=== PATIENT | female | born 1965 | race Caucasian/White ===

== ENCOUNTER → 2017-06-23 | Outpatient (CLI) | payer BC, OTHER ==
[~2017-06-23] MED LIST: ACET65TA; DEPA500T2; FLUO40CA PO; KEPP500T4 PO; LORA1TAB PO; LORT5TAB PO; MAXA10TA20 PO; MOTR200T44 PO; NECON; OLAN5TAB PO; OMEP20CA3 PO; ORTH1TAB4 PO; PERCOCET PO; PROZ40CA PO; QUET1TAB9 PO; RIZA10TA4 PO; SERO200T PO; TYLE325T5 PO; ZOFR8TAB PO
== END ==
LOC: M WUC 09:45
PROVIDERS: ATTEND Nurse Practitioner Psychiatric/Mental Health
DX: F20.9 Schizophrenia, unspecified (principal); Z79.899 Other long term (current) drug therapy
CPT/HCPCS: 36415; 80061; 82465; 83036; G0480

== ENCOUNTER → 2018-07-20 | Outpatient (CLI) | payer BC, OTHER | LOC: M WHC 06:46 | DX: Z12.31 Encounter for screening mammogram for malignant neoplasm of breast (principal); Z78.0 Asymptomatic menopausal state; Z79.3 Long term (current) use of hormonal contraceptives | CPT/HCPCS: 77067 ==

== ENCOUNTER 2018-08-03 09:47 | Day surgery (SDC) | payer BC, OTHER ==
[2018-08-03] MEDS: NS 1,000 ML IV (10:55)
[2018-08-03] MEDS ORDERED: PROPOFOL 200 MG/20 ML VIAL As Ordered ×2 (11:24)
== END 2018-08-03 12:10 | disposition home or self-care (01) ==
LOC: M OPP 12:10
DX: Z12.11 Encounter for screening for malignant neoplasm of colon (principal); K21.9 Gastro-esophageal reflux disease without esophagitis; F41.9 Anxiety disorder, unspecified; G43.909 Migraine, unspecified, not intractable, without status migrainosus; Z79.899 Other long term (current) drug therapy; Z91.012 Allergy to eggs; Z91.048 Other nonmedicinal substance allergy status; Z88.5 Allergy status to narcotic agent; Z86.69 Personal history of other diseases of the nervous system and sense organs; Z90.710 Acquired absence of both cervix and uterus
CPT/HCPCS: 45378

== ENCOUNTER → 2018-10-27 | Outpatient (CLI) | payer OTHER, BC ==
[~2018-10-27] MED LIST changes: +PROP20TA72 PO; +ZIPR20CA13 PO
[2018-10-27 12:48] LABS: CHOLESTEROL RISK RATIO 5.159 (<5)
[2018-10-27 13:24] LABS: HEMOGLOBIN A1c 5.9 %
== END ==
LOC: M WUC 08:06
PROVIDERS: ATTEND Nurse Practitioner Psychiatric/Mental Health
DX: F20.9 Schizophrenia, unspecified (principal); Z51.81 Encounter for therapeutic drug level monitoring; Z79.899 Other long term (current) drug therapy

== ENCOUNTER 2019-01-12 16:39 | Emergency (ER) | payer BC, OTHER ==
[~2019-01-12] VITALS: Ht 160 cm; Wt 74.5 kg
[~2019-01-12 16:39] MED LIST changes: +ONDA-227 PO; +OXYC1TAB23 PO; -PERCOCET PO; -ZOFR8TAB PO
[2019-01-12] MEDS ORDERED: METOCLOPRAMIDE INJ 10MG/2ML VIAL (J2765) IV ONE (17:00)
[2019-01-12] MEDS ORDERED: KETOROLAC 30 MG/ML VIAL (J1885) IV ONE (17:00)
[2019-01-12] MEDS ORDERED: ZIPR40CA11 PO (17:03)
--- NOTE | 2019-01-12 18:53 | REP ---
Head CT without contrast: History: Dizziness. Headache. Comparison study: September 23, 2016. CT findings: The patient is edentulous. Bone window settings demonstrate an intact bony calvarium. There is no evidence of skull fracture or incidental bony calvarial lesion. The visualized paranasal sinuses appear clear. No intraorbital abnormality is seen. On soft tissue window setting images; the lateral, third, and fourth ventricles are normal in size and position. Dupree-white differentiation pattern is normal above and below the tentorium. There are is no evidence of intracranial hemorrhage. No mass, edema, infarction, or midline shift is seen. No extra-axial fluid collection is appreciated. Impression: Negative noncontrast head CT. Electronically Signed by Mo Carrasco MD 01/12/2019 06:52 P
[2019-01-12] MEDS ORDERED: MECLIZINE 12.5 MG TAB PO ONE (20:00)
[2019-01-12] MEDS ORDERED: MECL1CHW PO (20:00)
[2019-01-12] MEDS ORDERED: MECLIZINE 25 MG TABLET PO ONE (20:00)
[2019-01-12 21:02] VITALS: BP 147/88
== END 2019-01-12 21:12 | disposition home or self-care (01) ==
LOC: EDBD 16:39 → M ED 16:39
DX: H81.10 Benign paroxysmal vertigo, unspecified ear (principal); Z79.899 Other long term (current) drug therapy; Z88.8 Allergy status to other drugs, medicaments and biological substances; Z91.012 Allergy to eggs; Z91.048 Other nonmedicinal substance allergy status
CPT/HCPCS: 70450; 96374; 96375; 99284; J1885; J2765

== ENCOUNTER → 2019-07-24 | Outpatient (CLI) | payer BC ==
[~2019-07-24] MED LIST changes: +MECL1CHW PO; -OMEP20CA3 PO; +OMEP20CA4 PO; -QUET1TAB9 PO; +QUET200T2 PO; -RIZA10TA4 PO; +RIZA10TA58 PO; +ZIPR40CA11 PO
--- NOTE | 2019-07-24 09:01 | REPMRS ---
Patient History The patient states she has not had a clinical breast exam in over a year. No known family history of cancer. Took hormonal contraceptives for 29 years. 3D TOMOSYNTHESIS WAS PERFORMED. [facility] lifetime risk for breast cancer is 6.3%. Digital Woman Screen Mammo: July 24, 2019 - Exam #: [id number] Bilateral CC and MLO view(s) were taken. Technologist: Milka Orantes, Technologist Prior study comparison: July 20, 2018, bilateral digital woman screen mammo performed at [facility]. 2017, bilateral digital mammo screening bilat, performed at [facility]. FINDINGS: There are scattered fibroglandular densities. There has been no change in the appearance of the mammogram from the prior studies. There is a mild amount of residual fibroglandular tissue which is fairly symmetric. There is no interval development of dominant mass, architectural distortion, or clustered microcalcification suggestive of malignancy. Assessment: BI-RADS/ACR category 1 mammogram. Negative Mammogram. Recommendation Routine screening mammogram in 1 year (for women over age 40). This mammogram was interpreted with the aid of an FDA-approved computer-aided dectection system. Electronically Signed By: Karl Dupree MD 07/24/19 0901
== END ==
LOC: M WHC 07:11
PROVIDERS: ATTEND Internal Medicine
DX: Z12.31 Encounter for screening mammogram for malignant neoplasm of breast (principal)

== ENCOUNTER → 2019-10-13 | Outpatient (CLI) | payer BC ==
[~2019-10-13] MED LIST changes: +OMEP1CAP73 PO; -OMEP20CA4 PO
== END ==
LOC: M WUC 08:28
PROVIDERS: ATTEND Nurse Practitioner Psychiatric/Mental Health
DX: Z51.81 Encounter for therapeutic drug level monitoring (principal); Z79.899 Other long term (current) drug therapy; F20.9 Schizophrenia, unspecified

== ENCOUNTER 2021-01-02 09:17 | Emergency (ER) | payer BC, OTHER ==
[~2021-01-02] VITALS: Ht 160 cm; Wt 79.1 kg
[2021-01-02] MEDS ORDERED: AMIT25TA17 PO (09:33)
[2021-01-02] MEDS ORDERED: ROSU5TAB5 PO (09:33)
[2021-01-02 11:31] VITALS: BP 127/84
--- NOTE | 2021-01-02 13:21 | ECGEPIP ---
[facility] - ED Test Date: 2021-01-02 Pat Name: IMAN BIRD Department: Room: - Gender: Female [employer]ician: : [id number] Requested By: Sanjana Almaguer Order Number: [id number] Reading MD: Sanjana Almaguer Measurements Intervals [place] Rate: 65 P: 68 LA: 186 QRS: -3 QRSD: 98 T: 29 QT: 418 QTc: 434 Interpretive Statements Normal sinus rhythm Nonspecific ST T wave changes Delayed R wave progression 09/20/[address] T wave changes Electronically Signed on 01-02-2021 13:21:00 EDT by Sanjana Almaguer
== END 2021-01-02 11:33 | disposition home or self-care (01) ==
LOC: M ED 09:17
DX: R55 Syncope and collapse (principal); T88.1XXA Other complications following immunization, not elsewhere classified, initial encounter; Y92.9 Unspecified place or not applicable; Y93.9 Activity, unspecified; F41.9 Anxiety disorder, unspecified; Z79.899 Other long term (current) drug therapy; Z91.89 Other specified personal risk factors, not elsewhere classified; Z91.012 Allergy to eggs; Z88.8 Allergy status to other drugs, medicaments and biological substances

== ENCOUNTER 2021-04-13 20:39 | Emergency (ER) | payer BC, OTHER ==
[~2021-04-13] VITALS: Ht 160 cm; Wt 78.4 kg
[2021-04-13 20:39] VITALS: BP 152/86
[~2021-04-13 20:39] MED LIST changes: +AMIT25TA17 PO; +OLAN1TAB16 PO; -OLAN5TAB PO; +ROSU5TAB5 PO
[2021-04-14] MEDS ORDERED: MIRA3350 PO (01:21)
[2021-04-14] MEDS ORDERED: COLA100C5 PO (01:21)
[2021-11-04] MEDS ORDERED: RIZA10TA58 PO (13:02)
[2021-11-18] MEDS ORDERED: PERC5TAB12 PO (09:25)
== END 2021-04-14 01:14 | disposition home or self-care (01) ==
LOC: M ED 20:39
DX: K64.8 Other hemorrhoids (principal); I10 Essential (primary) hypertension; K21.9 Gastro-esophageal reflux disease without esophagitis; Z88.8 Allergy status to other drugs, medicaments and biological substances; Z91.012 Allergy to eggs; Z91.048 Other nonmedicinal substance allergy status; Z79.899 Other long term (current) drug therapy

== ENCOUNTER → 2021-05-18 | Outpatient (CLI) | payer BC, OTHER ==
[~2021-05-18] MED LIST changes: +COLA100C5 PO; +MIRA3350 PO
== END ==
LOC: M LABSMTC 10:13
PROVIDERS: ATTEND Surgery
DX: Z20.822 Contact with and (suspected) exposure to COVID-19 (principal)

== ENCOUNTER → 2021-05-18 | Outpatient (CLI) | payer BC, OTHER ==
[2021-05-18 14:18] LABS: MEAN CORPUSCULAR HEMOGLOBIN 26.7 pg (27.0-33.0); MEAN CORPUSCULAR HGB CONC 31.1 g/dl (32.0-36.5); MEAN CORPUSCULAR VOLUME 85.9 fl (80.0-96.0); PLATELET COUNT, AUTOMATED 299 10^3/uL (150-450); RED BLOOD COUNT 5.24 10^6/uL (4.00-5.40); WHITE BLOOD COUNT 7.4 10^3/uL (4.0-10.0)
[2021-05-18 14:42] LABS: ALBUMIN 3.8 GM/DL (3.2-5.2); ALT/SGPT 44 U/L (12-78); BILIRUBIN,TOTAL 0.6 MG/DL (0.2-1.0); BLOOD UREA NITROGEN 10 MG/DL (7-18); CALCIUM LEVEL 9.5 MG/DL (8.5-10.1); CARBON DIOXIDE LEVEL 29 MEQ/L (21-32); CHLORIDE LEVEL 109 MEQ/L (98-107); CREATININE FOR GFR 0.67 MG/DL (0.55-1.30); GLOMERULAR FILTRATION RATE > 60.0 (>51); GLUCOSE, FASTING 90 MG/DL (70-100); POTASSIUM SERUM 4.7 MEQ/L (3.5-5.1); SODIUM LEVEL 141 MEQ/L (136-145); TOTAL PROTEIN 6.8 GM/DL (6.4-8.2)
== END ==
LOC: M PLALAB 11:15
PROVIDERS: ATTEND Surgery
DX: Z01.818 Encounter for other preprocedural examination (principal); K62.3 Rectal prolapse

== ENCOUNTER → 2021-11-13 | Outpatient (CLI) | payer BC, OTHER | LOC: M LABSMTC 09:49 | PROVIDERS: ATTEND Anesthesiology | DX: Z01.812 Encounter for preprocedural laboratory examination (principal); Z20.822 Contact with and (suspected) exposure to COVID-19 ==

== ENCOUNTER 2021-11-18 09:54 | Day surgery (SDC) | payer BC, OTHER ==
[~2021-11-18] VITALS: Ht 160 cm; Wt 73.0 kg
[~2021-11-18 09:54] MED LIST changes: +LR 1,000 ML IV ONE; +PERC5TAB12 PO
[2021-11-18] MEDS ORDERED: ceFAZolin SOD 2 GM in IV 1 EA IV ONE (10:20)
[2021-11-18 10:49] LABS: HEMATOCRIT 46.5 % (36.0-47.0); HEMOGLOBIN 14.9 g/dl (12.0-15.5); MEAN CORPUSCULAR HEMOGLOBIN 26.6 pg (27.0-33.0); MEAN CORPUSCULAR VOLUME 82.9 fl (80.0-96.0); PLATELET COUNT, AUTOMATED 330 10^3/uL (150-450); RED BLOOD COUNT 5.61 10^6/uL (4.00-5.40); WHITE BLOOD COUNT 7.2 10^3/uL (4.0-10.0)
[2021-11-18] MEDS ORDERED: KETOROLAC 60MG 2ML VIAL As Ordered ONE (11:04)
[2021-11-18] MEDS ORDERED: ACETAMINOPHEN 1000MG 100ML IV BTL (OFIRMEV) (J0131 PER 10MG) As Ordered ONE (11:04)
[2021-11-18] MEDS ORDERED: ONDANSETRON 4MG/2ML VIAL As Ordered ONE (11:04)
[2021-11-18] MEDS ORDERED: propofoL 200 MG/20 ML VIAL As Ordered ONE (11:04)
[2021-11-18] MEDS ORDERED: fentaNYL 100 MCG/2 ML INJECTION As Ordered ONE (11:04)
[2021-11-18] MEDS ORDERED: MIDAZOLAM INJ 2MG/2ML VIAL (J2250 PER 1MG) As Ordered ONE (11:04)
[2021-11-18] MEDS ORDERED: LIDOCAINE 2% 100MG/5ML SDV (FOR ANES.) As Ordered ONE (11:04)
[2021-11-18] MEDS ORDERED: dexameTHASONE 4 MG/ML 1ML VIAL (J1100 PER 1MG) As Ordered ONE (11:04)
[2021-11-18 11:16] LABS: BLOOD UREA NITROGEN 13 MG/DL (7-18); CALCIUM LEVEL 9.6 MG/DL (8.5-10.1); CARBON DIOXIDE LEVEL 28 MEQ/L (21-32); CHLORIDE LEVEL 106 MEQ/L (98-107); CREATININE FOR GFR 0.87 MG/DL (0.55-1.30); GLOMERULAR FILTRATION RATE > 60.0 (>51); GLUCOSE, FASTING 91 MG/DL (70-100); POTASSIUM SERUM 4.1 MEQ/L (3.5-5.1); SODIUM LEVEL 139 MEQ/L (136-145)
[2021-11-18] MEDS ORDERED: BUPIVACAINE HCL 0.25% 30ML VIAL As Ordered ONE (11:57)
[2021-11-18] MEDS ORDERED: fentaNYL 100 MCG/2 ML INJECTION IV PRN (13:20)
[2021-11-18] MEDS ORDERED: ONDANSETRON 4MG/2ML VIAL IV PRN (13:20)
[2021-11-18] MEDS ORDERED: LR 1,000 ML IV SCH ×2 (13:20→13:25)
[2021-11-18] MEDS ORDERED: oxyCODONE 5MG TAB PO PRN (13:20)
[2021-11-18] MEDS ORDERED: PERCOCET 5MG/325MG TAB PO PRN (13:25)
[2021-11-18 14:45] VITALS: BP 110/67
== END 2021-11-18 15:00 | disposition home or self-care (01) ==
LOC: M SDC 09:54
PROVIDERS: ATTEND Obstetrics & Gynecology
DX: T83.721A Exposure of implanted vaginal mesh into vagina, initial encounter (principal); N93.9 Abnormal uterine and vaginal bleeding, unspecified; G43.909 Migraine, unspecified, not intractable, without status migrainosus; K21.9 Gastro-esophageal reflux disease without esophagitis; E78.5 Hyperlipidemia, unspecified; F41.9 Anxiety disorder, unspecified; F32.9 Major depressive disorder, single episode, unspecified; Z86.73 Personal history of transient ischemic attack (TIA), and cerebral infarction without residual deficits; Z79.899 Other long term (current) drug therapy; Z88.5 Allergy status to narcotic agent; Z88.8 Allergy status to other drugs, medicaments and biological substances; Z91.012 Allergy to eggs
CPT/HCPCS: 36415; 57295; 80048; 85027; 86850; 86870; 86900; 86901; 88300; J0131; J0690; J1100; J1885; J2250; J2405; J3010

== ENCOUNTER 2023-01-17 09:31 | Inpatient (IN) | payer OTHER, BC ==
[~2023-01-17] VITALS: Ht 160 cm; Wt 65.1 kg
[~2023-01-17 09:31] MED LIST changes: -LR 1,000 ML IV ONE
[2023-01-17] MEDS ORDERED: RIME75TA SL (13:07)
[2023-01-17] MEDS ORDERED: HOME MED LIST COMPLETE! XX SCH (13:10)
[2023-01-17 13:54] LABS: AMPHETAMINES LEVEL URINE NEGATIVE (NEGATIVE); BARBITURATES URINE NEGATIVE (NEGATIVE); BENZODIAZEPINES URINE NEGATIVE (NEGATIVE); CANNABINOIDS URINE NEGATIVE (NEGATIVE); COCAINE METABOLITE URINE NEGATIVE (NEGATIVE); METHADONE URINE NEGATIVE (NEGATIVE); OPIATES URINE NEGATIVE (NEGATIVE); PHENCYCLIDINE URINE NEGATIVE (NEGATIVE)
[2023-01-17 14:11] LABS: HEMOGLOBIN 15.5 g/dl (12.0-15.5); MEAN CORPUSCULAR HEMOGLOBIN 27.8 pg (27.0-33.0); MEAN CORPUSCULAR VOLUME 84.4 fl (80.0-96.0); PLATELET COUNT, AUTOMATED 354 10^3/uL (150-450); RED BLOOD COUNT 5.57 10^6/uL (4.00-5.40); WHITE BLOOD COUNT 8.5 10^3/uL (4.0-10.0)
[2023-01-17 14:26] LABS: ETHYL ALCOHOL (ETHANOL) < 0.003 % (0.000-0.010)
[2023-01-17 14:28] LABS: ACETAMINOPHEN LEVEL < 2.0 UG/ML (10.0-20.0); ALBUMIN 4.9 G/DL (3.2-5.2); ALKALINE PHOSPHATASE 100 U/L (46-116); ALT/SGPT 12 U/L (7.0-40); AST/SGOT 24 U/L (<34); BILIRUBIN,DIRECT 0.5 MG/DL (<0.4); BILIRUBIN,TOTAL 1.2 MG/DL (0.3-1.2); BLOOD UREA NITROGEN 14 MG/DL (9-23); CALCIUM LEVEL 9.9 MG/DL (8.5-10.1); CARBON DIOXIDE LEVEL 26 MMOL/L (20-31); CHLORIDE LEVEL 107 MMOL/L (98-107); CREATININE FOR GFR 0.79 MG/DL (0.55-1.30); GLOMERULAR FILTRATION RATE > 60.0 (>51); GLUCOSE, FASTING 113 MG/DL (60-100); POTASSIUM SERUM 4.1 MMOL/L (3.5-5.1); SALICYLATE LEVEL < 3.0 MG/DL (<30); SODIUM LEVEL 143 MMOL/L (136-145); TOTAL PROTEIN 8.1 G/DL (5.7-8.2)
[2023-01-17 14:30] LABS: THYROID STIMULATING HORMONE 1.705 uIU/ML (0.55-4.78)
[2023-01-17] MEDS ORDERED: MAALOX 30 ML SUSP *UDC PO PRN (15:05)
[2023-01-17] MEDS ORDERED: IBUPROFEN 400MG TAB PO PRN (15:05)
[2023-01-17] MEDS ORDERED: traZODone 50 MG TAB PO PRN (15:05)
[2023-01-17] MEDS ORDERED: ACETAMINOPHEN TAB 650MG DOSE (2X325MG) PO PRN (15:05)
[2023-01-17] MEDS ORDERED: MOM 30ML SUSPENSION UDC PO PRN (15:05)
[2023-01-17] MEDS: NICOTINE 14 MG/24 HR TRANSDERMAL TD SCH (17:42)
[2023-01-17] MEDS: LORazepam 1 MG TAB PO PRN (18:43)
[2023-01-17] MEDS: diphenhydrAMINE 25MG CAP PO PRN (23:09)
[2023-01-17 23:49] VITALS: BP 136/79
[2023-01-18] MEDS: NICOTINE 14 MG/24 HR TRANSDERMAL TD SCH (09:00)
[2023-01-18] MEDS: OMEPRAZOLE 20MG CAP PO SCH (09:09)
[2023-01-18] MEDS: ROSUVASTATIN 10 MG TAB (CRESTOR) PO SCH (09:09)
[2023-01-18 18:56] VITALS: BP 142/92
[2023-01-18] MEDS: diphenhydrAMINE 25MG CAP PO PRN (22:50)
[2023-01-19] MEDS: LORazepam 1 MG TAB PO PRN (00:30)
[2023-01-19 02:00] VITALS: BP 129/91
[2023-01-19 06:32] VITALS: BP 129/95
[2023-01-19] MEDS: NICOTINE 14 MG/24 HR TRANSDERMAL TD SCH (09:00)
[2023-01-19] MEDS: OMEPRAZOLE 20MG CAP PO SCH (09:36)
[2023-01-19] MEDS: ROSUVASTATIN 10 MG TAB (CRESTOR) PO SCH (09:37)
[2023-01-19] MEDS: PILL CUTTER 1 EACH XX PRN (09:37)
[2023-01-20 06:49] VITALS: BP 141/79
[2023-01-20 07:54] LABS: CHOLESTEROL RISK RATIO 2.18 (<5); HDL CHOLESTEROL 47.6 MG/DL (>40); LDL CHOLESTEROL 45.2 MG/DL (<100); NON-HDL-C 56.4 MG/DL
[2023-01-20] MEDS: OMEPRAZOLE 20MG CAP PO SCH (08:43)
[2023-01-20] MEDS: ROSUVASTATIN 10 MG TAB (CRESTOR) PO SCH (08:44)
[2023-01-20] MEDS: PILL CUTTER 1 EACH XX PRN (08:45)
[2023-01-20] MEDS: NICOTINE 14 MG/24 HR TRANSDERMAL TD SCH (08:46)
[2023-01-20] MEDS ORDERED: SENNA 8.6 MG TAB (SENOKOT) PO PRN (10:05)
[2023-01-21 06:52] VITALS: BP 142/95
[2023-01-21] MEDS: NICOTINE 14 MG/24 HR TRANSDERMAL TD SCH (07:58)
[2023-01-21] MEDS: OMEPRAZOLE 20MG CAP PO SCH (08:00)
[2023-01-21] MEDS: ROSUVASTATIN 10 MG TAB (CRESTOR) PO SCH (08:00)
[2023-01-21] MEDS: diphenhydrAMINE 25MG CAP PO PRN (17:22)
[2023-01-21 17:37] VITALS: BP 138/98
[2023-01-22 05:59] VITALS: BP 135/70
[2023-01-22] MEDS: OMEPRAZOLE 20MG CAP PO SCH (08:25)
[2023-01-22] MEDS: ROSUVASTATIN 10 MG TAB (CRESTOR) PO SCH (08:26)
[2023-01-22] MEDS: PILL CUTTER 1 EACH XX PRN (08:27)
[2023-01-22] MEDS: NICOTINE 14 MG/24 HR TRANSDERMAL TD SCH (09:00)
[2023-01-22 18:00] VITALS: BP_SYST 136; BP_SYST 150; BP_DIAS 80; BP_DIAS 96
[2023-01-23 06:49] VITALS: BP 130/84
[2023-01-23] MEDS: NICOTINE 14 MG/24 HR TRANSDERMAL TD SCH (08:08)
[2023-01-23] MEDS: OMEPRAZOLE 20MG CAP PO SCH (08:46)
[2023-01-23] MEDS: ROSUVASTATIN 10 MG TAB (CRESTOR) PO SCH (08:47)
[2023-01-23] MEDS: PILL CUTTER 1 EACH XX PRN (08:47)
[2023-01-24 06:41] VITALS: BP 143/83
[2023-01-24] MEDS: ROSUVASTATIN 10 MG TAB (CRESTOR) PO SCH (08:27)
[2023-01-24] MEDS: OMEPRAZOLE 20MG CAP PO SCH (08:27)
[2023-01-24] MEDS: PILL CUTTER 1 EACH XX PRN (08:27)
[2023-01-24] MEDS: NICOTINE 14 MG/24 HR TRANSDERMAL TD SCH (08:31)
[2023-01-24 16:10] VITALS: BP 148/90
[2023-01-24] MEDS: ARIPiprazole 10 MG TAB PO SCH (20:06)
[2023-01-25 07:00] VITALS: BP 108/57
[2023-01-25] MEDS: NICOTINE 14 MG/24 HR TRANSDERMAL TD SCH (08:08)
[2023-01-25] MEDS: PILL CUTTER 1 EACH XX PRN (08:09)
[2023-01-25] MEDS: ROSUVASTATIN 10 MG TAB (CRESTOR) PO SCH (08:09)
[2023-01-25] MEDS: OMEPRAZOLE 20MG CAP PO SCH (08:12)
[2023-01-25] MEDS: ARIPiprazole 10 MG TAB PO SCH ×2 (08:13→20:00)
[2023-01-25] MEDS ORDERED: ABIL10TA9 PO (12:28)
[2023-01-25 16:23] VITALS: BP 150/90
[2023-01-26 06:30] VITALS: BP 152/87
[2023-01-26] MEDS: NICOTINE 14 MG/24 HR TRANSDERMAL TD SCH (08:13)
[2023-01-26] MEDS: OMEPRAZOLE 20MG CAP PO SCH (08:14)
[2023-01-26] MEDS: ARIPiprazole 10 MG TAB PO SCH (08:14)
[2023-01-26] MEDS: PILL CUTTER 1 EACH XX PRN (08:14)
[2023-01-26] MEDS: ROSUVASTATIN 10 MG TAB (CRESTOR) PO SCH (08:14)
== END 2023-01-26 13:52 | disposition home or self-care (01) | DRG 885 ==
LOC: M ED 09:31 → M ED INP 15:04 → M PSY 22:40
PROVIDERS: ADMIT Student in an Organized Health Care Education/Training Program; ATTEND Psychiatry & Neurology Psychiatry
DX: F33.3 Major depressive disorder, recurrent, severe with psychotic symptoms (principal); F41.9 Anxiety disorder, unspecified; G43.909 Migraine, unspecified, not intractable, without status migrainosus; E78.5 Hyperlipidemia, unspecified; G40.909 Epilepsy, unspecified, not intractable, without status epilepticus; Z56.6 Other physical and mental strain related to work; Z90.79 Acquired absence of other genital organ(s); Z90.49 Acquired absence of other specified parts of digestive tract; Z20.822 Contact with and (suspected) exposure to COVID-19; Z83.3 Family history of diabetes mellitus; Z88.8 Allergy status to other drugs, medicaments and biological substances; Z91.048 Other nonmedicinal substance allergy status; Z88.5 Allergy status to narcotic agent; Z91.012 Allergy to eggs

== ENCOUNTER 2023-02-14 11:31 | Emergency (ER) | payer BC, OTHER ==
[~2023-02-14] VITALS: Ht 160 cm; Wt 63.6 kg
[~2023-02-14 11:31] MED LIST changes: +ABIL10TA9 PO; +RIME75TA SL
[2023-02-14] MEDS ORDERED: PROP20TA72 (12:04)
[2023-02-14] MEDS ORDERED: ACETAMINOPHEN 500 MG TAB PO ONE (12:40)
[2023-02-14 13:34] VITALS: BP 127/71
== END 2023-02-14 13:37 | disposition home or self-care (01) ==
LOC: M ED 11:31
DX: M79.672 Pain in left foot (principal); G43.909 Migraine, unspecified, not intractable, without status migrainosus; Z86.73 Personal history of transient ischemic attack (TIA), and cerebral infarction without residual deficits; F20.9 Schizophrenia, unspecified; F41.9 Anxiety disorder, unspecified; Z79.899 Other long term (current) drug therapy; Z88.5 Allergy status to narcotic agent; Z88.8 Allergy status to other drugs, medicaments and biological substances; Z91.89 Other specified personal risk factors, not elsewhere classified; Z91.012 Allergy to eggs

== ENCOUNTER 2023-04-10 16:02 | Emergency (ER) | payer BC, OTHER ==
[~2023-04-10] VITALS: Ht 160 cm; Wt 64.9 kg
[2023-04-10 16:05] VITALS: BP 150/84; TEMP 99.5; O2SAT 97
[2023-04-10 17:11] LABS: ETHYL ALCOHOL (ETHANOL) < 0.003 % (0.000-0.010)
[2023-04-10 17:13] LABS: ACETAMINOPHEN LEVEL < 2.0 UG/ML (10.0-20.0); ALBUMIN 4.4 G/DL (3.2-5.2); ALKALINE PHOSPHATASE 94 U/L (46-116); ALT/SGPT 25 U/L (7.0-40); AST/SGOT 16 U/L (<34); BILIRUBIN,DIRECT 0.4 MG/DL (<0.4); BILIRUBIN,TOTAL 1.2 MG/DL (0.3-1.2); BLOOD UREA NITROGEN 9 MG/DL (9-23); CALCIUM LEVEL 9.5 MG/DL (8.5-10.1); CARBON DIOXIDE LEVEL 24 MMOL/L (20-31); CHLORIDE LEVEL 108 MMOL/L (98-107); GLOMERULAR FILTRATION RATE > 60.0 (>51); GLUCOSE, FASTING 97 MG/DL (60-100); POTASSIUM SERUM 3.9 MMOL/L (3.5-5.1); SALICYLATE LEVEL < 3.0 MG/DL (<30); SODIUM LEVEL 140 MMOL/L (136-145); TOTAL PROTEIN 7.4 G/DL (5.7-8.2)
[2023-04-10 17:15] LABS: THYROID STIMULATING HORMONE 2.083 uIU/ML (0.55-4.78)
[2023-04-10 17:19] LABS: HEMATOCRIT 45.9 % (36.0-47.0); HEMOGLOBIN 14.8 g/dl (12.0-15.5); MEAN CORPUSCULAR HEMOGLOBIN 27.7 pg (27.0-33.0); MEAN CORPUSCULAR HGB CONC 32.2 g/dl (32.0-36.5); PLATELET COUNT, AUTOMATED 272 10^3/uL (150-450); RED BLOOD COUNT 5.34 10^6/uL (4.00-5.40); WHITE BLOOD COUNT 7.3 10^3/uL (4.0-10.0)
[2023-04-10 17:22] LABS: AMPHETAMINES LEVEL URINE NEGATIVE (NEGATIVE); BARBITURATES URINE NEGATIVE (NEGATIVE); BENZODIAZEPINES URINE NEGATIVE (NEGATIVE); CANNABINOIDS URINE NEGATIVE (NEGATIVE); COCAINE METABOLITE URINE NEGATIVE (NEGATIVE); METHADONE URINE NEGATIVE (NEGATIVE); OPIATES URINE NEGATIVE (NEGATIVE); PHENCYCLIDINE URINE NEGATIVE (NEGATIVE)
[2023-04-10] MEDS ORDERED: LORazepam 0.5 MG TAB PO ONE (18:50)
== END 2023-04-10 19:04 | disposition home or self-care (01) ==
LOC: M ED 16:02
DX: F41.9 Anxiety disorder, unspecified (principal); F60.0 Paranoid personality disorder; G43.909 Migraine, unspecified, not intractable, without status migrainosus; R56.9 Unspecified convulsions; F32.89 Other specified depressive episodes; E78.5 Hyperlipidemia, unspecified; Z79.899 Other long term (current) drug therapy; Z91.89 Other specified personal risk factors, not elsewhere classified; Z88.8 Allergy status to other drugs, medicaments and biological substances; Z88.5 Allergy status to narcotic agent; Z91.012 Allergy to eggs

== ENCOUNTER 2023-04-13 02:13 | Inpatient (IN) | payer OTHER, BC ==
[2023-04-13] MEDS ORDERED: LORazepam 2 MG TAB PO ONE (03:15)
[2023-04-13 03:26] LABS: HEMATOCRIT 42.4 % (36.0-47.0); HEMOGLOBIN 14.2 g/dl (12.0-15.5); MEAN CORPUSCULAR HEMOGLOBIN 27.5 pg (27.0-33.0); MEAN CORPUSCULAR HGB CONC 33.5 g/dl (32.0-36.5); MEAN CORPUSCULAR VOLUME 82.2 fl (80.0-96.0); PLATELET COUNT, AUTOMATED 273 10^3/uL (150-450); RED BLOOD COUNT 5.16 10^6/uL (4.00-5.40); WHITE BLOOD COUNT 6.7 10^3/uL (4.0-10.0)
[2023-04-13 03:39] LABS: AMPHETAMINES LEVEL URINE NEGATIVE (NEGATIVE); BARBITURATES URINE NEGATIVE (NEGATIVE); BENZODIAZEPINES URINE NEGATIVE (NEGATIVE); CANNABINOIDS URINE NEGATIVE (NEGATIVE); COCAINE METABOLITE URINE NEGATIVE (NEGATIVE); METHADONE URINE NEGATIVE (NEGATIVE); OPIATES URINE NEGATIVE (NEGATIVE); PHENCYCLIDINE URINE NEGATIVE (NEGATIVE)
[2023-04-13 03:43] LABS: ETHYL ALCOHOL (ETHANOL) < 0.003 % (0.000-0.010)
[2023-04-13 03:44] LABS: ACETAMINOPHEN LEVEL < 2.0 UG/ML (10.0-20.0); SALICYLATE LEVEL < 3.0 MG/DL (<30)
[2023-04-13 03:52] LABS: ALBUMIN 4.2 G/DL (3.2-5.2); ALKALINE PHOSPHATASE 85 U/L (46-116); ALT/SGPT 25 U/L (7.0-40); AST/SGOT 15 U/L (<34); BILIRUBIN,DIRECT 0.5 MG/DL (<0.4); BILIRUBIN,TOTAL 1.2 MG/DL (0.3-1.2); BLOOD UREA NITROGEN 12 MG/DL (9-23); CALCIUM LEVEL 10.4 MG/DL (8.5-10.1); CARBON DIOXIDE LEVEL 26 MMOL/L (20-31); CHLORIDE LEVEL 108 MMOL/L (98-107); CREATININE FOR GFR 0.72 MG/DL (0.55-1.30); GLOMERULAR FILTRATION RATE > 60.0 (>51); GLUCOSE, FASTING 146 MG/DL (60-100); POTASSIUM SERUM 3.7 MMOL/L (3.5-5.1); SODIUM LEVEL 141 MMOL/L (136-145); THYROID STIMULATING HORMONE 2.838 uIU/ML (0.55-4.78)
[2023-04-13] MEDS ORDERED: PROZ10CA7 PO (12:45)
[2023-04-13] MEDS ORDERED: ATIV1TAB10 PO (12:45)
[2023-04-13] MEDS ORDERED: HOME MED LIST COMPLETE! XX SCH (12:50)
[2023-04-13] MEDS ORDERED: MOM 30ML SUSPENSION UDC PO PRN (20:05)
[2023-04-13] MEDS ORDERED: MAALOX 30 ML SUSP *UDC PO PRN (20:05)
[2023-04-13] MEDS ORDERED: traZODone 50 MG TAB PO PRN (20:05)
[2023-04-13] MEDS: PROPRANOLOL 20 MG TAB PO SCH (22:25)
[2023-04-13 23:14] VITALS: BP 128/80; TEMP 98.1; O2SAT 99
[2023-04-14 06:54] VITALS: BP 186/91; TEMP 98; O2SAT 96
[2023-04-14 07:04] VITALS: BP 132/83
[2023-04-14] MEDS: PROPRANOLOL 20 MG TAB PO SCH ×2 (08:22→21:03)
[2023-04-14] MEDS: OMEPRAZOLE 20MG CAP PO SCH (08:22)
[2023-04-14] MEDS ORDERED: FLUoxetine 10 MG CAP PO SCH (09:00)
[2023-04-14] MEDS: LURASIDONE 20 MG TAB (LATUDA) PO SCH (11:25)
[2023-04-14] MEDS: PILL CUTTER 1 EACH XX PRN (13:50)
[2023-04-14] MEDS: ROSUVASTATIN 10 MG TAB (CRESTOR) PO SCH (13:51)
[2023-04-14 14:14] LABS: ALBUMIN 4.4 G/DL (3.2-5.2); ALKALINE PHOSPHATASE 84 U/L (46-116); ALT/SGPT 29 U/L (7.0-40); AST/SGOT 16 U/L (<34); BLOOD UREA NITROGEN 11 MG/DL (9-23); CALCIUM LEVEL 9.4 MG/DL (8.5-10.1); CARBON DIOXIDE LEVEL 28 MMOL/L (20-31); CHLORIDE LEVEL 105 MMOL/L (98-107); CREATININE FOR GFR 0.69 MG/DL (0.55-1.30); GLOMERULAR FILTRATION RATE > 60.0 (>51); GLUCOSE, FASTING 95 MG/DL (60-100); PTH INTACT 63.8 PG/ML (18.5-88.0); SODIUM LEVEL 138 MMOL/L (136-145); TOTAL 25(OH) VITAMIN D 42.2 NG/ML (20.0-100.0); TOTAL PROTEIN 6.9 G/DL (5.7-8.2)
[2023-04-14 18:18] VITALS: BP 132/82; TEMP 96.9
[2023-04-14] MEDS: OLANZapine ORAL DISINTEGRATING TAB 5MG PO PRN (23:15)
[2023-04-15 06:44] VITALS: BP 150/83; TEMP 98; O2SAT 99
[2023-04-15] MEDS: FLUoxetine 20MG CAP PO SCH (07:20)
[2023-04-15] MEDS: OMEPRAZOLE 20MG CAP PO SCH (07:21)
[2023-04-15] MEDS: PROPRANOLOL 20 MG TAB PO SCH ×2 (07:21→20:28)
[2023-04-15] MEDS: LURASIDONE 20 MG TAB (LATUDA) PO SCH (07:23)
[2023-04-15] MEDS: ROSUVASTATIN 10 MG TAB (CRESTOR) PO SCH (07:23)
[2023-04-15] MEDS: ACETAMINOPHEN TAB 650MG DOSE (2X325MG) PO PRN ×2 (07:23→20:42)
[2023-04-15 17:42] VITALS: BP 150/66; TEMP 97.6; O2SAT 100
[2023-04-16] MEDS: ACETAMINOPHEN TAB 650MG DOSE (2X325MG) PO PRN (03:02)
[2023-04-16 06:18] VITALS: BP 119/74; TEMP 98.9; O2SAT 98
[2023-04-16] MEDS: FLUoxetine 20MG CAP PO SCH (08:06)
[2023-04-16] MEDS: OMEPRAZOLE 20MG CAP PO SCH (08:06)
[2023-04-16] MEDS: PROPRANOLOL 20 MG TAB PO SCH ×2 (08:09→20:25)
[2023-04-16] MEDS: LURASIDONE HCL 40MG TAB (LATUDA) PO SCH (08:09)
[2023-04-16] MEDS: ROSUVASTATIN 10 MG TAB (CRESTOR) PO SCH (08:10)
[2023-04-16] MEDS: OLANZapine ORAL DISINTEGRATING TAB 5MG PO PRN (16:54)
[2023-04-16 18:19] VITALS: BP 162/98; TEMP 99; O2SAT 96
[2023-04-17 06:19] VITALS: BP 124/69; TEMP 98.6; O2SAT 97
[2023-04-17] MEDS: LURASIDONE HCL 40MG TAB (LATUDA) PO SCH (07:39)
[2023-04-17] MEDS: ROSUVASTATIN 10 MG TAB (CRESTOR) PO SCH (08:38)
[2023-04-17] MEDS: PILL CUTTER 1 EACH XX PRN (08:38)
[2023-04-17] MEDS: PROPRANOLOL 20 MG TAB PO SCH ×2 (08:39→20:38)
[2023-04-17] MEDS: OMEPRAZOLE 20MG CAP PO SCH (08:39)
[2023-04-17] MEDS: FLUoxetine 20MG CAP PO SCH (08:42)
[2023-04-17 18:00] VITALS: BP 131/63; TEMP 97.5; O2SAT 99
[2023-04-18 06:05] VITALS: BP 110/64; TEMP 98.5; O2SAT 96
[2023-04-18] MEDS: LURASIDONE HCL 40MG TAB (LATUDA) PO SCH (08:01)
[2023-04-18] MEDS: ROSUVASTATIN 10 MG TAB (CRESTOR) PO SCH (08:01)
[2023-04-18] MEDS: PILL CUTTER 1 EACH XX PRN (08:02)
[2023-04-18] MEDS: PROPRANOLOL 20 MG TAB PO SCH ×2 (08:04→20:00)
[2023-04-18] MEDS: OMEPRAZOLE 20MG CAP PO SCH (08:04)
[2023-04-18] MEDS: FLUoxetine 20MG CAP PO SCH (08:04)
[2023-04-18 18:09] VITALS: BP 134/72; TEMP 98.6; O2SAT 97
[2023-04-19 06:28] VITALS: BP 131/80; TEMP 98.1; O2SAT 100
[2023-04-19] MEDS ORDERED: PROP20TA72 PO (08:12)
[2023-04-19] MEDS ORDERED: LATU40TA2 PO (08:12)
[2023-04-19] MEDS ORDERED: FLUO20CA22 PO (08:12)
[2023-04-19] MEDS: FLUoxetine 20MG CAP PO SCH (08:24)
[2023-04-19] MEDS: LURASIDONE HCL 40MG TAB (LATUDA) PO SCH (08:24)
[2023-04-19] MEDS: OMEPRAZOLE 20MG CAP PO SCH (08:24)
[2023-04-19] MEDS: ROSUVASTATIN 10 MG TAB (CRESTOR) PO SCH (08:25)
[2023-04-19 08:26] VITALS: BP 146/79
[2023-04-19] MEDS: PROPRANOLOL 20 MG TAB PO SCH (08:26)
== END 2023-04-19 10:31 | disposition home or self-care (01) | DRG 885 ==
LOC: M ED 02:13 → M ED INP 20:05 → M PSY 21:00
PROVIDERS: ADMIT Student in an Organized Health Care Education/Training Program; ATTEND Student in an Organized Health Care Education/Training Program
DX: F31.81 Bipolar II disorder (principal); Z88.8 Allergy status to other drugs, medicaments and biological substances; Z91.012 Allergy to eggs; Z79.899 Other long term (current) drug therapy; G43.909 Migraine, unspecified, not intractable, without status migrainosus; K21.9 Gastro-esophageal reflux disease without esophagitis; F41.9 Anxiety disorder, unspecified; E83.51 Hypocalcemia

== ENCOUNTER 2023-11-27 02:02 | Inpatient (IN) | payer OTHER, SELFPAY ==
[~2023-11-27] VITALS: Ht 160 cm; Wt 72.5 kg
[~2023-11-27 02:02] MED LIST changes: -AMIT25TA17 PO; +AMIT25TA19 PO; +ATIV1TAB10 PO; +BENZ0.5T2 PO; +FLUO20CA22 PO; +LATU40TA2 PO; +LURA40TA2 PO; +PROP20TA PO; +PROP20TA82 PO; +PROZ10CA7 PO; +TRAZ-252 PO
[2023-11-27 03:18] LABS: HEMOGLOBIN 14.1 g/dl (12.0-15.5); MEAN CORPUSCULAR HEMOGLOBIN 27.4 pg (27.0-33.0); MEAN CORPUSCULAR HGB CONC 32.8 g/dl (32.0-36.5); MEAN CORPUSCULAR VOLUME 83.7 fl (80.0-96.0); PLATELET COUNT, AUTOMATED 257 10^3/uL (150-450); RED BLOOD COUNT 5.14 10^6/uL (4.00-5.40); WHITE BLOOD COUNT 6.3 10^3/uL (4.0-10.0)
[2023-11-27 03:43] LABS: AMPHETAMINES LEVEL URINE NEGATIVE (NEGATIVE); BARBITURATES URINE NEGATIVE (NEGATIVE); BENZODIAZEPINES URINE NEGATIVE (NEGATIVE); COCAINE METABOLITE URINE NEGATIVE (NEGATIVE)
[2023-11-27 03:44] LABS: CANNABINOIDS URINE NEGATIVE (NEGATIVE); METHADONE URINE NEGATIVE (NEGATIVE); OPIATES URINE NEGATIVE (NEGATIVE); PHENCYCLIDINE URINE NEGATIVE (NEGATIVE)
[2023-11-27 03:46] LABS: ETHYL ALCOHOL (ETHANOL) < 0.003 % (0.000-0.010)
[2023-11-27 03:47] LABS: SALICYLATE LEVEL < 3.0 MG/DL (<30)
[2023-11-27 03:48] LABS: ALBUMIN 4.2 G/DL (3.2-5.2); ALKALINE PHOSPHATASE 88 U/L (46-116); ALT/SGPT 36 U/L (7.0-40); AST/SGOT 22 U/L (<34); BILIRUBIN,DIRECT 0.2 MG/DL (<0.4); BILIRUBIN,TOTAL 0.7 MG/DL (0.3-1.2); BLOOD UREA NITROGEN 9 MG/DL (9-23); CALCIUM LEVEL 9.4 MG/DL (8.5-10.1); CARBON DIOXIDE LEVEL 29 MMOL/L (20-31); CHLORIDE LEVEL 105 MMOL/L (98-107); CREATININE FOR GFR 0.93 MG/DL (0.55-1.30); GLOMERULAR FILTRATION RATE > 60.0 (>51); GLUCOSE, FASTING 97 MG/DL (60-100); POTASSIUM SERUM 3.7 MMOL/L (3.5-5.1); SODIUM LEVEL 141 MMOL/L (136-145); TOTAL PROTEIN 7.2 G/DL (5.7-8.2)
[2023-11-27 03:50] LABS: THYROID STIMULATING HORMONE 2.368 uIU/ML (0.55-4.78)
[2023-11-27] MEDS ORDERED: LATU80TA2 PO (05:30)
[2023-11-27] MEDS ORDERED: LATU20TA PO (05:30)
[2023-11-27] MEDS ORDERED: FLUO40CA PO (05:30)
[2023-11-27] MEDS ORDERED: BENZ1TAB5 PO (05:30)
[2023-11-27] MEDS ORDERED: HOME MED LIST COMPLETE! XX SCH (05:30)
[2023-11-27] MEDS: ALPRAZolam 0.5 MG TAB PO ONE (06:29)
[2023-11-27 06:38] LABS: APPEARANCE, URINE HAZY (CLEAR); BACTERIA, URINE AUTO 1+ (NEGATIVE); BILIRUBIN, URINE AUTO NEGATIVE (NEGATIVE); BLOOD, URINE BLOOD NEGATIVE (NEGATIVE); COLOR, URINE YELLOW (YELLOW); GLUCOSE, URINE (UA) AUTO NEGATIVE (NEGATIVE); KETONE, URINE AUTO NEGATIVE (NEGATIVE); LEUKOCYTE ESTERASE, URINE AUTO 1+ (NEGATIVE); MUCUS, URINE SMALL (NEGATIVE); NITRITE, URINE AUTO NEGATIVE (NEGATIVE); PROTEIN, URINE AUTO NEGATIVE (NEGATIVE); RBC, URINE AUTO 4 /HPF (0-3); SPECIFIC GRAVITY URINE AUTO 1.005 (1.002-1.035); SQUAMOUS EPITHELIAL CELL UR AU 8 /HPF (0-6); UROBILINOGEN, URINE AUTO 0.2 mg/dL (0.0-2.0); WBC, URINE AUTO 3 /HPF (0-3)
[2023-11-27] MEDS ORDERED: ACETAMINOPHEN TAB 650MG DOSE (2X325MG) PO PRN (19:40)
[2023-11-27] MEDS ORDERED: IBUPROFEN 400MG TAB PO PRN (19:40)
[2023-11-27] MEDS ORDERED: MAALOX 30 ML SUSP *UDC PO PRN (19:40)
[2023-11-27] MEDS ORDERED: PILL CUTTER 1 EACH XX PRN (19:55)
[2023-11-27 20:38] VITALS: BP 106/62; TEMP 97.4; O2SAT 95
[2023-11-27] MEDS: BENZTROPINE 1 MG TAB PO SCH (21:06)
[2023-11-27] MEDS: LURASIDONE 20 MG TAB (LATUDA) PO SCH (21:06)
[2023-11-27] MEDS: LURASIDONE HCL 40MG TAB (LATUDA) PO SCH (21:06)
[2023-11-27] MEDS: PROPRANOLOL 20 MG TAB PO SCH (21:11)
[2023-11-28 06:30] VITALS: BP 112/76; TEMP 97.9; O2SAT 99
[2023-11-28 08:11] VITALS: BP 138/67
[2023-11-28] MEDS: ROSUVASTATIN 10 MG TAB (CRESTOR) PO SCH (08:15)
[2023-11-28] MEDS: OMEPRAZOLE 20MG CAP PO SCH (08:18)
[2023-11-28] MEDS: FLUoxetine 20MG CAP PO SCH (08:18)
[2023-11-28 17:32] VITALS: BP 143/86; TEMP 97.5
[2023-11-28] MEDS: traZODone 50 MG TAB PO PRN (20:14)
[2023-11-29 06:19] VITALS: BP 122/56; TEMP 98.7; O2SAT 96
[2023-11-29 07:53] LABS: CHOLESTEROL RISK RATIO 3.94 (<5); HDL CHOLESTEROL 38.8 MG/DL (>40); LDL CHOLESTEROL 82.2 MG/DL (<100); NON-HDL-C 114.2 MG/DL
[2023-11-29 17:24] VITALS: BP 136/80; TEMP 98.8; O2SAT 97
[2023-11-30 06:27] VITALS: BP 126/64; TEMP 98.6; O2SAT 94
[2023-11-30 17:03] VITALS: BP 143/77; TEMP 97.5
[2023-11-30] MEDS: MOM 30ML SUSPENSION UDC PO PRN (20:13)
[2023-12-01 06:22] VITALS: BP 105/70; TEMP 97.2; O2SAT 96
[2023-12-01 08:13] VITALS: BP 118/71
== END 2023-12-01 11:37 | disposition home or self-care (01) | DRG 885 ==
LOC: M ED 02:02 → M ED INP 19:36 → M PSY 20:18
PROVIDERS: ADMIT Student in an Organized Health Care Education/Training Program; ATTEND Student in an Organized Health Care Education/Training Program
DX: F20.0 Paranoid schizophrenia (principal); F43.10 Post-traumatic stress disorder, unspecified; G43.909 Migraine, unspecified, not intractable, without status migrainosus; E78.5 Hyperlipidemia, unspecified; G40.909 Epilepsy, unspecified, not intractable, without status epilepticus; Z90.79 Acquired absence of other genital organ(s); Z90.49 Acquired absence of other specified parts of digestive tract; Z81.8 Family history of other mental and behavioral disorders; Z56.0 Unemployment, unspecified; Z79.899 Other long term (current) drug therapy; Z88.8 Allergy status to other drugs, medicaments and biological substances; Z91.048 Other nonmedicinal substance allergy status; Z88.5 Allergy status to narcotic agent; Z91.012 Allergy to eggs; Z11.52 Encounter for screening for COVID-19

== ENCOUNTER → 2025-06-21 | Outpatient (CLI) | payer BC ==
[~2025-06-21] MED LIST changes: +BENZ1TAB5 PO; +FLUO-365 PO; -FLUO20CA22 PO; +LATU20TA PO; +LATU80TA2 PO; +PROP20TA73 PO; -PROP20TA82 PO; +PROZ10CA11 PO; -PROZ10CA7 PO; +ROSU5TAB49 PO; -ROSU5TAB5 PO; -ZIPR40CA11 PO; +ZIPR40CA21 PO
[2025-06-21 14:09] LABS: ALT/SGPT 28.0 U/L (7.0-40); AST/SGOT 31.0 U/L (<34); CALCIUM LEVEL 9.7 MG/DL (8.5-10.1); CARBON DIOXIDE LEVEL 30.0 MMOL/L (20-31); CHLORIDE LEVEL 103.0 MMOL/L (98-107); CHOLESTEROL LEVEL 184.0 MG/DL (<200); CHOLESTEROL RISK RATIO 3.52 (<5); CREATININE FOR GFR 0.96 MG/DL (0.55-1.30); GLOMERULAR FILTRATION RATE 69.0 (>51); LDL CHOLESTEROL 107.8 MG/DL (<100); NON-HDL-C 131.8 MG/DL; POTASSIUM SERUM 3.8 MMOL/L (3.5-5.1); SODIUM LEVEL 142.0 MMOL/L (136-145); TRIGLYCERIDES LEVEL 120.0 MG/DL (<150)
== END ==
LOC: M WUC 09:01
PROVIDERS: ATTEND Internal Medicine
DX: E78.5 Hyperlipidemia, unspecified (principal)